=== PATIENT | female | born 1985 | race Caucasian/White ===

== ENCOUNTER 2024-05-20 20:48 | Emergency (ER) | payer MEDICAID, SELFPAY ==
--- NOTE | ~2024-05-20 | CT_ITS ---
EXAMINATION: CT HEAD WITHOUT CONTRAST CLINICAL INFORMATION: Headache. Hypertension. COMPARISON: None available. TECHNIQUE: Contiguous axial imaging was performed from the skull base to vertex without intravenous administration of contrast. This CT examination was performed using dose optimization techniques as appropriate, variously including the following: *Automated exposure control *Adjustment of mA and/or kV according to patient size (this includes techniques or standardized protocols for targeted exams where dose is matched to indication/reason for exam; i.e. extremities or head) *Use of iterative reconstruction technique DLP: 770 mGy-cm FINDINGS: There is no acute intracranial hemorrhage. There is no evidence of acute/subacute cerebral or cerebellar infarction. There is no midline shift or mass effect. There is no extra-axial fluid collection. The ventricles are normal in size. The orbits are symmetric and within normal limits. The calvarium is intact. Visualized paranasal sinuses and mastoid air cells are clear. CT/CT head/brain wo IV con IMPRESSION: No acute intracranial pathology. Electronically signed by: Basil Martinez DO 05/20/2024 10:56 PM [facility]
--- NOTE | 2024-05-20 20:50 | ED_ITS ---
HPI - Headache General Chief Complaint: General Medical Stated Complaint: Migraine/HBP Time Seen by Provider: 05/20/24 21:55 History of Present Illness ED Provider: Gera CASTRO Narrative: The patient is a 38-year-old woman with a history of headaches. She also has a history of hypertension. She is not on any medications currently. She says that 2 years ago she was and had -related hypertension possibly preeclampsia. She says that she was prescribed antihypertensive medication after the but has not continued it. She has not been on medications for about a year. The patient says this afternoon she developed a headache at around 15:00. She says the headache was fairly prompt in coming on. She feels it primarily on the left side of her head. She says that it feels similar to previous headaches for which she usually takes ibuprofen. She did not have any ibuprofen. She tried acetaminophen but it did not help. She checked her blood pressure and her blood pressure was high. At that point she thought she ought to come to the emergency room. She has no associated fever, sweats, chills. No associated neck stiffness. No photophobia. Related Data Previous Rx's ?Medication ?Instructions ?Recorded lisinopril 10 mg tablet 10 mg PO DAILY #30 tabs 05/20/24 Allergies Allergy/AdvReac Type Severity Reaction Status Date / Time No Known Allergies Allergy Verified 05/20/24 20:57 Review of Systems 2 Review of Systems: Yes all other systems are reviewed and are negative [facility] Social History Social History Smoked in Last 30 Days: No Use of substances other than those prescribed or required for medical reasons: No Advance Directives: No Advance Directives Information Provided: No Do you have a plan to hurt others: No Plan Physical Exam 2 Vital Signs: Vital Signs: Last Vital Signs Temp 98.0 F 05/20/24 23:14 Pulse 91 05/20/24 23:14 Resp 14 05/20/24 23:14 BP 162/94 H 05/20/24 23:14 Pulse Ox 99 05/20/24 23:14 O2 Del Method Room Air 05/20/24 23:14 BMI result Body Mass Index 45.8 Const: Other: Patient is awake and alert. Mental status is clear. BMI is 45. She does not appear uncomfortable or in distress. She does not appear toxic in any way. HEENT: Other: Face is symmetrical. Mucous membranes moist. The pharynx is normal. Eyes: General: appearance normal, both eyes and all related structures C onjunctivae: conjunctivae normal Pupils: Equal, round and reactive pupils present EOM: EOMs intact bilaterally Neck: Other: Neck is supple. No adenopathy. Resp: Effort & Inspection: normal respiratory effort Auscultation: clear to auscultation bilaterally Cardio: Rate: regular rate Rhythm: regular rhythm Heart sounds: S1 normal heart sound present and S2 normal heart sound present Skin: Other: Skin is dry and unremarkable Neuro: Other: The patient is awake and alert with a normal mental status. Cranial nerves 2-12 are intact. She moves her extremities normally. She has a supple neck. She is neurologically intact. Cranial nerves: Yes Equal, round and reactive pupils present Extrem: Other: No peripheral edema Course Course Course Narrative: This is a Rapid Medical Exam performed in triage by Hyun Currie PA-C. Full HPI, ROS and PE to be performed by primary ED provider. 38-year-old female w/PMHx HTN (noncompliant on meds x 1yr) presenting to the ED c/o migraine WHITLOCK & high blood pressure today at home (170/113). Admits to hx migraines, but todays is worse. denies taking AC or chest pain PE: HTNsive 174/107 in triage. ambulating w/steady gait, nonfocal Plan: EKG, labs, viral testing, head CT Medications Administered Discontinued Medications Generic Name Dose Route Start Last Admin Trade Name Freq PRN Reason Stop Dose Admin Ketorolac Tromethamine 30 mg 05/20/24 22:14 05/20/24 22:24 Ketorolac Tromethamine 30 Mg/Ml Vial IM 05/20/24 22:15 30 mg ONCE ONE Administration Prochlorperazine Edisylate 10 mg 05/20/24 22:14 05/20/24 22:25 Prochlorperazine Edisylate 10 Mg/2 Ml Vial IM 05/20/24 22:15 10 mg ONCE ONE Administration Medical Decision Making Medical Decision Making MDM Narrative: The patient is a 38-year-old female who presents with a headache. She is also hypertensive. I believe she is probably chronically hypertensive. She showed be in her phone that she had taken her blood pressure in January when she was asymptomatic in her blood pressure was 180/101. She was not taking any antihypertensive medications at that time. The headache today I think is part of her headache syndrome. She says that she has had similar headaches in the past although not recently. She says that she can usually manage the the headaches with ibuprofen but she did not have any ibuprofen today. She took Tylenol instead that did not help. She also checked her blood pressure which was high. She was therefore concerned and came to the emergency room. At triage labs and a CT scan of the head were ordered. CT of the head was done approximately 6 hours after the onset of the headache. I do not have a significant suspicion for a subarachnoid hemorrhage. The patient does not seem toxic. She has a supple neck. The patient was treated with IM ketorolac and IM prochlorperazine with the resolution of her headache. Her blood pressure also improved to 162/94. She does not have a local primary care doctor. She is new in his area. She is trying to get a new primary care doctor. I will prescribe lisinopril 10 mg daily for 1 month. She should return if worse. Lab Data 05/20/24 21:04 05/20/24 21:05 Labs: Lab Results 05/20/24 05/20/24 Range/Units 21:04 21:05 WBC 12.1 H (4.8-10.8) X10*3/uL RBC 4.74 (4.20-5.50) X10*6/uL Hgb 11.7 L (12.0-16.0) g/dl Hct 35.9 L (37.0-47.0) % MCV 75.7 L (80.0-98.0) fL MCH 24.7 L (27.0-33.0) pg MCHC 32.6 (31.0-35.0) g/dl RDW 14.8 (11.0-16.0) % Plt Count 382 (160-400) X10*3/uL MPV 9.2 L (9.4-12.3) fL Immature Gran % (Auto) 0.2 (0.0-0.4) % Neut % (Auto) 57.2 (45-73) % Lymph % (Auto) 31.7 (20-40) % [place] % (Auto) 8.1 (2-11) % Eos % (Auto) 2.6 (0-4) % Baso % (Auto) 0.2 (0-2) % Lymph # (Auto) 3.9 (1.2-4.9) X10*3/uL [place] # (Auto) 1.0 (0.1-1.2) X10*3/uL Eos # (Auto) 0.3 (0.0-0.4) X10*3/uL Baso # (Auto) 0.0 (0.0-0.2) X10*3/uL Abs Immat Gran (auto) 0.03 (0.00-0.03) X10*3/uL Absolute Neuts (auto) 6.9 (2.0-8.3) x10*3/uL Absolute Nucleated RBC 0.000 (0.0-0.012) X10*3/uL Nucleated RBC % (auto) 0.0 (0.0-0.2) /100WBC PT 12.0 (10.9-12.4) SEC INR 1.0 (0.9-1.1) Sodium 137 (135-145) mmol/L Potassium 4.1 (3.3-5.1) mmol/L Chloride 105 (96-108) mmol/L Carbon Dioxide 25 (22-29) mmol/L Anion Gap 11 L (12-20) BUN 11 (9-16) mg/dL Creatinine 0.83 (0.5-1.4) mg/dL Estim Creat Clear Calc 125.1 Estimated GFR > 60 Random Glucose 109 (60-115) mg/dL Calcium 9.5 (8.4-10.2) mg/dL Magnesium 2.0 (1.6-2.6) mg/dL Total Bilirubin 0.2 (0.0-1.0) mg/dL Direct Bilirubin < 0.2 (0.0-0.5) mg/dL AST 24 (5-31) U/L ALT 30 (0-31) U/L Alkaline Phosphatase 75 (39-117) U/L Troponin I High Sens < 2.7 (<3.5-17.0) ng/L Total Protein 7.6 (6.5-8.0) g/dL Albumin 4.2 (3.5-5.0) g/dL Beta HCG, Quant < 2 mIU/mL Influenza Type A (PCR) NEGATIVE (Negative) Influenza Type B (PCR) NEGATIVE (Negative) RSV RNA Qual (PCR) NEGATIVE (Negative) SARS-CoV-2 RNA (RT-PCR) NEGATIVE (Negative) Discharge Plan Discharge Clinical Impression: Headache, Hypertension Patient Disposition: Home, Self-Care Instructions: Hypertension (ED) Additional Instructions: Your testing today including the CT scan of your head is reassuring. Your blood pressure readings were high today. You will probably need to be on long-term blood pressure medication. Since you do not have a regular doctor I have sent a prescription for 1 month's worth of a blood pressure medicine I think it would be reasonable for you to take. Please work to get a new primary care doctor so that your blood pressure can be managed on an ongoing basis. Take this new medication once a day. Return to the emergency room if you feel significantly worse. Prescriptions: New lisinopril 10 mg tablet 10 mg PO DAILY Qty: 30 0RF Print Language: Georgian
--- NOTE | 2024-05-20 20:50 | ECG_ITS ---
Test Reason : HTN Blood Pressure : / mmHG Vent. Rate : 094 BPM Atrial Rate : 094 BPM P-R Int : 166 ms QRS Dur : 092 ms QT Int : 350 ms P-R-T Axes : 023 -03 032 degrees QTc Int : 437 ms Normal sinus rhythm Moderate voltage criteria for LVH, may be normal variant ( R in aVL , [employer] product ) Borderline ECG No previous ECGs available Referred By: Hyun Currie Electronically Signed By:CARTER HIGHTOWER MD
[2024-05-20 20:56] VITALS: PULSE 94; RESP 20; TEMP 36.8; O2SAT 98; BMI 45.8
[2024-05-20 21:13] LABS: Basophils Percent Auto 0.2 % (0-2); Eosinophils Absolute Auto 0.3 X10*3/uL (0.0-0.4); Eosinophils Percent Auto 2.6 % (0-4); Hematocrit 35.9 % (37.0-47.0); Hemoglobin 11.7 g/dl (12.0-16.0); Imm Gran Abs Auto 0.03 X10*3/uL (0.00-0.03); Imm Gran Pct Auto 0.2 % (0.0-0.4); Lymphocytes Absolute Auto 3.9 X10*3/uL (1.2-4.9); Lymphocytes Percent Auto 31.7 % (20-40); MANUAL DIFF FLAG NO; Mean Corpuscular HGB Conc 32.6 g/dl (31.0-35.0); Mean Corpuscular Hemoglobin 24.7 pg (27.0-33.0); Mean Corpuscular Volume 75.7 fL (80.0-98.0); Mean Platelet Volume 9.2 fL (9.4-12.3); Monocytes Percent Auto 8.1 % (2-11); Neutrophils Absolute Auto 6.9 x10*3/uL (2.0-8.3); Neutrophils Percent Auto 57.2 % (45-73); Platelet Count 382 X10*3/uL (160-400); Red Blood Count 4.74 X10*6/uL (4.20-5.50); Red Cell Distribution Width 14.8 % (11.0-16.0); White Blood Count 12.1 X10*3/uL (4.8-10.8)
[2024-05-20 21:21] VITALS: BP 176/101
[2024-05-20 21:39] LABS: Albumin Level 4.2 g/dL (3.5-5.0); Alkaline Phosphatase 75 U/L (39-117); Anion Gap 11 (12-20); Aspartate Amino Transferase 24 U/L (5-31); Bilirubin Direct < 0.2 mg/dL (0.0-0.5); Bilirubin Total 0.2 mg/dL (0.0-1.0); Blood Urea Nitrogen 11 mg/dL (9-16); Calcium 9.5 mg/dL (8.4-10.2); Carbon Dioxide 25 mmol/L (22-29); Chloride 105 mmol/L (96-108); Creatinine Clr Calc Pharmacy 125.1; Estimated Glomerular Filt Rate > 60; Glucose Random 109 mg/dL (60-115); Potassium 4.1 mmol/L (3.3-5.1); Sodium 137 mmol/L (135-145); Total Protein 7.6 g/dL (6.5-8.0)
[2024-05-20 21:40] LABS: Troponin-I High Sensitivity < 2.7 ng/L (<3.5-17.0)
[2024-05-20 21:50] LABS: Influenza A PCR NEGATIVE (Negative); Influenza B PCR NEGATIVE (Negative); Resp Syncy Virus RNA Qual PCR NEGATIVE (Negative); SARS COV2 PCR INHOUSE NEGATIVE (Negative)
[2024-05-20 21:55] LABS: Alanine Aminotransferase 30 U/L (0-31)
[2024-05-20] MEDS: Ketorolac Tromethamine 30 MG/ML VIAL IM (22:24)
[2024-05-20] MEDS: Prochlorperazine Edisylate 10 MG/2 ML VIAL IM (22:25)
[2024-05-20 22:51] LABS: HCG Quantitative < 2 mIU/mL
[2024-05-20 23:14] VITALS: BP 162/94; PULSE 91; RESP 14; TEMP 36.7; O2SAT 99
[2024-05-20 23:59] VITALS: BP 156/84; PULSE 97; RESP 14; TEMP 36.7; O2SAT 99
== END 2024-05-21 | disposition home or self-care (01) ==
PROVIDERS: Physician Assistant; Emergency Provider Emergency Medicine
DX: R51.9 Headache, unspecified (principal); I10 Essential (primary) hypertension; Z91.148 Patient's other noncompliance with medication regimen for other reason; Z03.818 Encounter for observation for suspected exposure to other biological agents ruled out
CPT/HCPCS: 0241U; 70450; 80048; 80076; 83735; 84484; 84702; 85025; 85610; 93005; 96372; 99284; 99285; J0737; J1885

== ENCOUNTER → 2024-05-20 20:50 | Outpatient (BNV) | payer MEDICAID, SELFPAY | PROVIDERS: Emergency Provider Emergency Medicine; Visit Provider Internal Medicine Cardiovascular Disease | DX: I10 Essential (primary) hypertension (principal); R94.31 Abnormal electrocardiogram [ECG] [EKG] | CPT/HCPCS: 93010 ==